=== PATIENT | female | born 1975 | race Asian ===

== ENCOUNTER 2017-12-02 12:06 | Emergency (ER) | payer SELFPAY ==
[~2017-12-02] VITALS: Ht 160 cm; Wt 60.0 kg
[2017-12-02] MEDS ORDERED: IBUPROFEN 600MG TABLET PO ONE (12:45)
[2017-12-02] MEDS ORDERED: ONDANSETRON 4MG ODT PO ONE (12:45)
[2017-12-02 12:48] VITALS: BP 148/92
== END 2017-12-02 13:24 | disposition home or self-care (01) ==
LOC: ER 12:42
DX: S46.812A Strain of other muscles, fascia and tendons at shoulder and upper arm level, left arm, initial encounter (principal); R51 Headache; V43.52XA Car driver injured in collision with other type car in traffic accident, initial encounter; Y93.89 Activity, other specified; Y92.89 Other specified places as the place of occurrence of the external cause; Y99.8 Other external cause status
CPT/HCPCS: 99283; Q0162